=== PATIENT | female | born 1960 | race Caucasian/White ===

== ENCOUNTER 2017-04-02 10:40 | Outpatient (CLI) | payer OTHER ==
[2017-04-02 12:28] LABS: Anion Gap 14 mmol/L (10-20); BUN (Urea Nitrogen) 24 mg/dL (9.8-20.1); Calc. Creatinine Clearance 0 mL/min (70-130); Calcium 10.2 mg/dL (7.8-10.44); Carbon Dioxide 30 mmol/L (22-29); Chloride 99 mmol/L (98-107); Estimated GFR-MDRD 71
== END 2017-04-02 10:41 | disposition home or self-care (01) ==
LOC: LABBT 10:40
PROVIDERS: ATTEND Neurological Surgery
DX: Z01.818 Encounter for other preprocedural examination (principal); M54.12 Radiculopathy, cervical region
CPT/HCPCS: 80048; 93005; 93010

== ENCOUNTER 2017-04-07 09:18 | Day surgery (SDC) | payer OTHER ==
[2017-04-02 10:59] VITALS: BMI 22.6
--- NOTE | 2017-04-07 00:46 | HP ---
HISTORY OF PRESENT ILLNESS: Ms. Davenport is a very pleasant 56-year-old woman who presents for evalu ation of roughly 18 months workup of right-sided C6 radicular pain that run into her upper chest, int erscapular region and down the right upper extremity into the hand. She also has hand numbness at ti mes. This all started after a fall off a ladder in the early part of 2015. CT scan from [place] reveals bony hypertrophy causing moderate stenosis in the right foramen to C5-C6, they are very old. She has had injections today, which certainly have helped but only for a very brief period of time a nd as such would like to discuss possible surgical intervention. PAST MEDICAL HISTORY: Significant for hypertension and anxiety. CURRENT MEDICATIONS: Lisinopril, alprazolam, zolpidem. ALLERGIES: No known drug allergies. PAST SURGICAL HISTORY: Hysterectomy, ovarian cystectomy, oophorectomy, and breast fibroid resection. PHYSICAL EXAMINATION: GENERAL: The patient is alert and oriented x3. NEUROLOGIC: Gait is normal, no ataxia. Upper extremity motor exam is normal. Positive for right-si ded Spurling's maneuver and normal reflexes at the biceps tendon bilaterally. ASSESSMENT: Cervical radiculopathy. PLAN: Discussed case with Dr. Ramachandran. We then met with the patient, reviewed imaging and ultimately advocated for a C5 through C6 ACDF. He explained to the patient the risks, benefits, and alternative s to the procedure. The patient expressed understanding and would like to move forward with surgery as discussed. I do believe the patient is mentally competent and capable of making medical decisions for herself. We will move forward with surgery as planned. Toni Shrestha PA-C dictating for Charli Ramachandran M.D.
--- NOTE | 2017-04-07 11:16 | PRG ---
DATE OF SERVICE: 04/07/2017 SUBJECTIVE: Ms. Davenport is a 56-year-old female initially evaluated by Toni Shrestha in the outpa tient setting and subsequently followed up by me via phone to discuss surgical planning. She present s today in the preoperative holding area for surgery today. I met with her to again discuss her imag ing, her symptoms, her diagnosis and the planned surgical procedure. She presents with a history of predominantly right C6 radiculopathy. She has a lumbar spine issues and this concerning her as well, but nonetheless her clinical pattern today as that of right C6 radiculopathy, which is consistent wi th what she had in the outpatient setting. She has a CT scan performed at [place], which reveals advanced degenerative disk disease at C5-6 with fairly significant foraminal narrowing, which I belie ve would account for her symptoms. She has had this treated in the way of injections and physical th erapy, neither of which offered her any extended relief. The plan today is a C5-6 ACDF. She and I r eviewed all the risks, benefits, and alternatives to surgery. I answered all of her questions as wel l as those of her significant other. She provided informed consent and we will schedule move forward accordingly.
[2017-04-07] MEDS ORDERED: Fentanyl 100 MCG/2 ML VIAL ONE (11:41)
[2017-04-07] MEDS ORDERED: Diprivan 20 ML ONE (11:41)
[2017-04-07] MEDS ORDERED: Promethazine HCl 25 MG/ML VIAL ONE (12:09)
[2017-04-07] MEDS ORDERED: HYDROmorphone 0.5 MG/0.5 ML SYRINGE ONE (12:11)
[2017-04-07] MEDS ORDERED: Midazolam HCl 2 mg/2 ml Vial ONE (12:11)
[2017-04-07] MEDS ORDERED: Scopolamine 1.5 mg/72 hour Patch ONE (12:17)
[2017-04-07] MEDS ORDERED: Thrombin 5000 UNITS/5 ML VIAL ONE (12:40)
[2017-04-07] MEDS ORDERED: CEFAZOLIN/Water 2 GM/20 ML SYRINGE ONE ×2 (12:54→16:05)
--- NOTE | 2017-04-07 14:21 | OP ---
DATE OF PROCEDURE: 04/07/2017 SURGEON: Charli Ramachandran M.D. CLINICAL RESEARCH SPECIALIST: Toni Shrestha PA-C INDICATION: Pain. DIAGNOSIS: Cervical radiculopathy. PROCEDURE: Anterior cervical discectomy and fusion, C5-6. ANESTHESIA: General. TECHNIQUE: The patient was brought into the operating room and placed under general anesthesia. She was placed on the table in supine position. A transverse incision was planned over the lateral aspe ct of the neck on the right. After prepping and draping and after an appropriate operative pause, th e incision was created. The underlying platysma muscle was identified and incised. A blunt tissue p heidi anterior to the sternocleidomastoid muscle was used to gain access to the prevertebral space. A fter confirming the appropriate level with C-arm fluoroscopy, an annulotomy was performed in the C5-6 disk space. All disk material as well as anterior and posterior osteophytes were removed. After co mplete decompression, a 6 mm lordotic PEEK cage packed with allograft and autograft material was plac ed within the interbody space. An anterior cervical plate was then fashioned in front of the spine a nd secured with a total of 4 fixed screws. Midline and lateral structures were inspected and found t o be free from significant trauma. The wound was irrigated. Hemostasis was maintained throughout. The wound was then closed in anatomic layers and a pressure dressing was applied. There were no know n procedural complications.
[2017-04-07] MEDS ORDERED: Ketorolac Tromethamine 30 MG/ML VIAL ONE (17:28)
[2017-04-07] MEDS ORDERED: Metoclopramide HCl 10 MG/2 ML VIAL ONE (17:28)
[2017-04-07] MEDS ORDERED: Ondansetron HCl/PF 4 MG/2 ML Vial ONE (17:28)
[2017-04-07] MEDS ORDERED: Succinylcholine Chloride 20 MG/ML 10 ml SYRINGE FS ONE (17:28)
[2017-04-07] MEDS ORDERED: Glycopyrrolate 0.2 MG/ML 5 ML SYRINGE ONE (17:28)
[2017-04-07] MEDS ORDERED: Propofol 200 MG/20 ML VIAL ONE (17:28)
[2017-04-07] MEDS ORDERED: Lidocaine 1% PF 5 ML VIAL ONE (17:28)
== END 2017-04-07 16:35 | disposition home or self-care (01) ==
LOC: SDC 09:18
PROVIDERS: ATTEND Neurological Surgery
PROC: 0RG20A0 Fusion of 2 or more Cervical Vertebral Joints with Interbody Fusion Device, Anterior Approach, Anterior Column, Open Approach (ICD-10-PCS; principal; 2017-04-07)
DX: M54.12 Radiculopathy, cervical region (principal); I10 Essential (primary) hypertension; F41.9 Anxiety disorder, unspecified; Z79.899 Other long term (current) drug therapy; Z90.710 Acquired absence of both cervix and uterus; Z98.890 Other specified postprocedural states
CPT/HCPCS: 76001; C1713; J0131; J1170; J1885; J2001; J2250; J2405; J2550; J2704; J2765; J3010

== ENCOUNTER 2017-05-23 05:44 | Day surgery (SDC) | payer OTHER ==
[2017-05-15 13:56] VITALS: BMI 22.6
--- NOTE | 2017-05-22 16:27 | HP ---
HISTORY OF PRESENT ILLNESS: Ms. Davenport is a 56-year-old woman who is known to us for previous ACDF at the end of the year this past year. She returns now for discussion of bilateral L5 radicular alexus ns in the setting of an MRI from the [facility] that reveals very large disk herniation at L4 impacting the bilateral descending L5 nerve root, which matches her pain rather well. She is ready t o pursue surgery at this time. PAST MEDICAL HISTORY: Significant for hypertension and anxiety. CURRENT MEDICATIONS: Lisinopril, alprazolam, and zolpidem. ALLERGIES: No known drug allergies. PAST SURGICAL HISTORY: Hysterectomy, ovarian cystectomy, oophorectomy, breast fibroid resection, and ACDF. PHYSICAL EXAMINATION: NEUROLOGIC: The patient is alert and oriented x3. Gait is mildly antalgic. Lower extremity motor e xam was normal. ASSESSMENT: Lumbar disk herniation with radiculopathy. Dr. Ramachandran met with the patient and reviewed imaging and advocated for an L4 diskectomy. He explained to the patient the risks, benefits, and alt ernatives to the procedure. The patient expressed understanding and would like to move forward with surgery as discussed. I do believe the patient is mentally competent and capable of making medical d ecisions for herself and we will move forward with surgery as planned. Toni Shrestha PA-C, dictating under Dr. Ramachandran.
[2017-05-23] MEDS ORDERED: Thrombin 5000 UNITS/5 ML VIAL ONE (06:16)
[2017-05-23] MEDS ORDERED: Bupivacaine/Epinephrine 0.25% 30 ML VIAL ONE (06:16)
[2017-05-23] MEDS ORDERED: CEFAZOLIN/Water 2 GM/20 ML SYRINGE ONE ×2 (06:26→11:21)
[2017-05-23] MEDS ORDERED: Fentanyl 100 MCG/2 ML VIAL ONE ×3 (06:45→08:52)
[2017-05-23] MEDS ORDERED: Midazolam HCl 2 mg/2 ml Vial ONE (06:45)
--- NOTE | 2017-05-23 08:13 | OP ---
DATE OF PROCEDURE: 05/23/2017 SURGEON: Dr. Charli Ramachandran LINUX ADMINISTRATOR: Long Shrestha PA-C. INDICATION: Pain. DIAGNOSIS: Lumbar radiculopathy secondary to lateral recess stenosis. PROCEDURE: L4-5 lumbar decompression, bilateral medial facetectomy, decompression. ANESTHESIA: General. TECHNIQUE: The patient was brought into the operating room and placed under general anesthesia. She was flipped from a supine to a prone position on the operating room table. A linear incision was pl anned over the L4-L5 segment. After prepping and draping and after an appropriate operative pause, t he incision was created. Soft tissues were swept away from midline. Self-retaining retractors were placed in the wound for optimal exposure. After confirming the appropriate level with C-arm fluorosc opy, an Adson rongeur was used to remove the spinous process at L4-5 segment. High-speed cutting dri ll bit as well as 2, 3 and 4-mm Kerrisons were then used to perform a laminectomy at the L4-5 segment . A laminectomy was extended laterally to encompass the medial aspect of the facet joints in order t o adequately decompress the lateral recesses. There was a small protuberant disk, but it was not con tributory in a substantial way and therefore I decided against performing diskectomy. The wound was irrigated. Hemostasis was maintained throughout. The wound was then closed in anatomic layers and a pressure dressing was applied. There were no known procedural complications.
[2017-05-23] MEDS ORDERED: Ketorolac Tromethamine 30 MG/ML VIAL ONE (08:29)
[2017-05-23] MEDS ORDERED: HYDROmorphone 0.5 MG/0.5 ML SYRINGE ONE (09:07)
[2017-05-23] MEDS ORDERED: Lidocaine 1% PF 5 ML VIAL ONE (13:21)
[2017-05-23] MEDS ORDERED: ePHEDrine/0.9% NaCl/PF SYRINGE 50 mg/10 ml ONE (13:21)
[2017-05-23] MEDS ORDERED: PHENYLEPHRINE-NS 100 MCG/ML 10 ML SYRINGE ONE (13:21)
[2017-05-23] MEDS ORDERED: Propofol 200 MG/20 ML VIAL ONE (13:21)
[2017-05-23] MEDS ORDERED: Dexamethasone 20 MG/5 ML VIAL ONE (13:21)
[2017-05-23] MEDS ORDERED: Ondansetron HCl/PF 4 MG/2 ML Vial ONE (13:21)
== END 2017-05-23 12:55 | disposition home or self-care (01) ==
LOC: SDC 05:44
PROVIDERS: ATTEND Neurological Surgery
PROC: 00NY0ZZ Release Lumbar Spinal Cord, Open Approach (ICD-10-PCS; principal; 2017-05-23)
DX: M48.061 Spinal stenosis, lumbar region without neurogenic claudication (principal); M51.16 Intervertebral disc disorders with radiculopathy, lumbar region; I10 Essential (primary) hypertension; F41.9 Anxiety disorder, unspecified; Z79.899 Other long term (current) drug therapy; Z98.1 Arthrodesis status; Z90.710 Acquired absence of both cervix and uterus; Z90.721 Acquired absence of ovaries, unilateral; Z98.890 Other specified postprocedural states
CPT/HCPCS: 76001; 96374; J1100; J1170; J1885; J2001; J2250; J2405; J2704; J3010

== ENCOUNTER 2017-06-23 12:44 | Outpatient (CLI) | payer OTHER ==
--- NOTE | 2017-06-23 14:44 | RAD ---
CERVICAL SPINE SERIES: History: Follow up surgery. FINDINGS: Patient has undergone an anterior cervical fusion at the C5-6 level. Markers of the disc implant are within the confines of the disc level. Very minimal anterolisthesis of C6 on C7 are noted. There are arthritic changes of the facet joints. IMPRESSION: Post-operative changes of the spine. POS: [facility]
== END 2017-06-23 12:45 | disposition home or self-care (01) ==
LOC: TBSIIMAG 12:44
PROVIDERS: ATTEND Neurological Surgery
DX: M51.26 Other intervertebral disc displacement, lumbar region (principal); Z98.1 Arthrodesis status
CPT/HCPCS: 72040

== ENCOUNTER 2018-11-12 23:57 | Emergency (ER) | payer OTHER, SELFPAY ==
[2018-11-13 00:28] LABS: #Eosinphils 0.2 thou/uL (0.0-0.7); #Lymphocytes 1.7 thou/uL (1.20-3.40); #Monocytes 0.5 thou/uL (0.11-0.59); %Basophils 0.9 % (0.0-1.0); %Eosinophils 3.7 % (0.0-10.0); %Lymphocytes 39.3 % (21.0-51.0); %Monocytes 10.5 % (0.0-10.0); %Neutrophils 45.5 % (42.0-75.0); Hemoglobin 11.7 g/dL (12.0-16.0); Mean Corpuscular HGB CONC 33.3 g/dL (32.0-36.0); Mean Corpuscular Hemoglobin 30.1 pg (27.0-31.0); Mean Corpuscular Volume 90.4 fL (78.0-98.0); Mean Platelet Volume 8.1 fL (7.4-10.4); Platelet Count 157 thou/uL (130-400); RBC Distribution Width 11.4 % (11.5-14.5); White Blood Cell (WBC) Count 4.4 thou/uL (4.8-10.8)
[2018-11-13 00:45] LABS: Acetaminophen Less than 6.0 mcg/mL (10.0-30.0); Alcohol 121 mg/dL (Less than 10); CK (CPK) 99 U/L (29-168); Salicylate Less than 8.0 mg/dL (15.0-30.0)
[2018-11-13 00:46] LABS: ALT (SGPT) 73 U/L (8-55); AST (SGOT) 42 U/L (5-34); Albumin 4.4 g/dL (3.5-5.0); Alkaline Phosphatase 89 U/L (40-150); Anion Gap 20 mmol/L (10-20); BUN (Urea Nitrogen) 18 mg/dL (9.8-20.1); Bilirubin, Total 0.2 mg/dL (0.2-1.2); Calc. Creatinine Clearance 0 mL/min (70-130); Calcium 9.6 mg/dL (7.8-10.44); Carbon Dioxide 17 mmol/L (22-29); Chloride 100 mmol/L (98-107); Estimated GFR-MDRD 84; Globulin 2.8 g/dL (2.4-3.5); Glucose 109 mg/dL (70-105); Potassium 3.3 mmol/L (3.5-5.1); Protein, Total 7.2 g/dL (6.0-8.3); Sodium 134 mmol/L (136-145)
[2018-11-13 00:55] LABS: BHCG - Serum Negative (NEGATIVE); Pregs Control Background? CLEAR/WHITE (CLR/WHITE); Pregs Control Bar Appear? YES (CONTROL BAR)
[2018-11-13 01:03] LABS: Thyroid Stimulating Hormone 4.6796 uIU/mL (0.35-4.94)
[2018-11-13 01:33] LABS: Benzodiazepine Screen Detected (NotDetected); Medtox Reader # READER 4
[2018-11-13 01:34] LABS: Amphetamine Not Detected (NotDetected); Barbiturates Screen Not Detected (NotDetected); Cocaine Metabolite Screen Not Detected (NotDetected); Medtox Control Line Valid? VALID (VALID); Methadone Not Detected (NotDetected); Methamphetamine Not Detected (NotDetected); Opiate Screen Not Detected (NotDetected); Oxycodone Screen Not Detected (NotDetected); Phencyclidine (PCP) Not Detected (NotDetected); THC/Cannabinoid Screen Not Detected (NotDetected); Tricyclic Screen Not Detected (NotDetected)
--- NOTE | 2018-11-13 07:48 | RAD ---
CHEST 1 VIEW: Date: 11/13/18 HISTORY: Altered mental status. Dyspnea. COMPARISON: 07/28/15. FINDINGS: Cardiac silhouette is magnified by projection. Pulmonary vasculature is unremarkable. Right hemidiaph ragm remains slightly elevated. Mediastinum is midline with aortic calcification. No lobar consolidat ion or evidence of pneumothorax. Postoperative changes of cervical spine. Calcified granuloma at the left lateral costophrenic angle is stable. patient monitor leads overlie the chest. IMPRESSION: Atherosclerosis. Chronic-type findings are stable. POS: [facility]
[2018-11-13] MEDS ORDERED: Lisinopril/Hydrochlorothiazide 20 mg/12.5 mg Tablet PO SCH (09:00)
[2018-11-13] MEDS ORDERED: Ibuprofen 200 MG TAB ONE (21:39)
== END 2018-11-15 15:42 | disposition home or self-care (01) ==
LOC: ERS 23:57
DX: T42.4X2A Poisoning by benzodiazepines, intentional self-harm, initial encounter (principal); F32.9 Major depressive disorder, single episode, unspecified; I10 Essential (primary) hypertension; F41.9 Anxiety disorder, unspecified; F43.10 Post-traumatic stress disorder, unspecified; Z79.899 Other long term (current) drug therapy
CPT/HCPCS: 36415; 71045; 80053; 80306; 80307; 82550; 84443; 84703; 85025; 93005